=== PATIENT | female | born 1955 | race Caucasian/White ===

== ENCOUNTER → 2017-12-01 10:12 | Outpatient (CLI) | payer OTHER, SELFPAY ==
--- NOTE | 2017-12-01 11:00 | XR_ITS ---
XR DEXA axial skeleton HISTORY: ITS.REASON: MENOPAUSAL , RT HIP PAIN ORDERING PHYSICIAN: Isabel Butterfield PATIENT AGE: 62 years COMPARISON: 11/01/2015 FINDINGS: The BMD measured at the Right femoral neck is 1.060 g/cm squared with a T score of 0.2. This is considered normal according to the World Health Organization criteria. Fracture risk is low. Treatment is advised. The L1 L4 density has a T score of 2.7. There is been overall decrease in bone density of lumbar spine and hips by approximately 4% compared to the previous study. There is increased density in the right lower ilium on the topogram views and could be related overlying artifact. Pelvic film may confirm and to exclude possibility of a blastic lesion in the ileum. IMPRESSION: 1. Normal bone density. Recommend follow-up exam November 2019 2. Increased density superior to the ileum which could be due to artifact or possible sclerotic lesion. Consider pelvic film for further evaluation.
== END ==
PROVIDERS: PCP Internal Medicine; Visit Provider Internal Medicine Hematology & Oncology
DX: Z78.0 Asymptomatic menopausal state (principal); M25.551 Pain in right hip; R05 Cough; C50.612 Malignant neoplasm of axillary tail of left female breast; N95.1 Menopausal and female climacteric states
CPT/HCPCS: 77080

== ENCOUNTER → 2017-12-10 08:53 | Outpatient (CLI) | payer OTHER, SELFPAY ==
--- NOTE | 2017-12-10 08:58 | NM_ITS ---
NM bone scan whole body Ordering Physician: Isabel Butterfield Patient Age: 62 years: Female HISTORY: ITS.REASON: LESION SEEN ON DEXA, BREAST CA,RT HIP PAIN Intense dense appearing foci superior right iliac bone on recent DEXA scan TECHNIQUE: 3 hours administration of 26.7 mCi Tc MDP images entire skeleton were performed. COMPARISON :DEXA scan of hips 12/01/2017 . Lumbar spine 5 view radiograph 05/15/2016 MRI lumbar spine & from 11/04/2016. Plain films AP pelvis from today. Also right knee from 2010 FINDINGS The studies performed to specifically exclude a significant lesions of the pelvis. No pelvic lesions evident. No evidence of metastatic disease. Slight increased activity at right L5/S1 facet, compatible with mild hypertrophic degenerative changes seen here on plain film. Also scant activity upper lumbar spine noted and compatible with minor degenerative disc changes L1/2 as well as other minor degenerative changes in marginal osteophytes upper lumbar spine. The Patient bilateral knee replacements. At the right TKA there is moderate increased activity at the proximal tibia shaft just inferior to of tibial peg. I would suggest plain films of the right knee to further evaluate.. Left TKA unremarkable here. This could reflect either recent surgery or slight motion occurring at the inferior aspect of the tibial peg. Note moderate activity at feet at the level most likely level of midfoot and tarsals bilaterally. Suggesting degenerative changes here. There is also activity at the wrist bilaterally likely reflecting arthritic changes at wrists . The ribs and T-spine appears satisfactory. Scant activity at AC joint and sternoclavicular joint noted and reflecting minor degenerative feature. Moderate activity at the throughout region nose and ethmoid sinuses which could reflect ethmoid sinusitis. IMPRESSION: 1. No evidence of metastatic disease . Specifically no lesions are evident at the right hemipelvis is question on DEXA scan. (. I believe the questionable findings on recent DEXA were merely due to artifact possibly radiopaque material at cecum) 2. Minor degenerative arthritic changes are noted as in text . 3. Bilateral TK A. At the right knee there is slight increased activity at the proximal tibia just inferior to the tibial prosthesis peg. Requires correlation. Suggest plain films of right knee and possibly right tibia and fibula to further evaluate. & If pain here orthopedic follow-up would be warranted
--- NOTE | 2017-12-10 08:59 | XR_ITS ---
XR pelvis 1-2V Ordering Physician: Isabel Butterfield Patient Age: 62 years: Female HISTORY: ITS.REASON: LESION SEEN ON DEXA, BREAST CA, RT HIP PAIN TECHNIQUE: AP pelvis radiograph pelvic pain. Blastic lesion pelvis DEXA scan COMPARISON :Total body bone scan from today MRI pelvis November 2016 FINDINGS Osseous pelvis appears intact. Within normal limits. Sacrum & SI joints unremarkable. No findings on plain film to correlate with the 2 intensely bright foci superior right iliac bone seen on on recent DEXA scan. These were superior to the right acetabulum.. Possibly this may been due to artifact or radiopaque material within the cecum. Patient also has a lumbar spine series from 2016 the osseous pelvis is unchanged radiographically since that exam. Is also MRI of the pelvis from November 2016 osseous pelvis to be intact lesions at pelvis. I now see there is a total Body Bone Scan performed today. It shows no significant findings at pelvis.. Only some subtle increased activity at the facet joints L5/S1 most evident to the right facet, which corresponds with evident facet hypertrophy bilaterally on plain film generous stool is seen at the cecum overlying right iliac bone IMPRESSION: Osseous pelvis intact.No lesions evident. (No findings right iliac bone to correspond with areas questioned on DEXA scan) Mild sclerosis about the pubis symphysis= multigravida pelvis Degenerative facet changes L-5/S1
== END ==
PROVIDERS: Family Provider Internal Medicine; PCP Internal Medicine; Visit Provider Internal Medicine Hematology & Oncology
DX: R94.8 Abnormal results of function studies of other organs and systems (principal); C50.612 Malignant neoplasm of axillary tail of left female breast; M25.552 Pain in left hip
CPT/HCPCS: 72170; 78306; A9503

== ENCOUNTER → 2019-03-03 08:44 | Outpatient (CLI) | payer OTHER, SELFPAY ==
--- NOTE | 2019-03-03 08:54 | XR_ITS ---
XR knee RT 3V HISTORY: Follow-up knee replacement ITS.REASON: ap, lateral sunrise Weightbearing ORDERING PHYSICIAN: Quita Akhtar MD PATIENT AGE: 64 years COMPARISON: 07/05/2018 FINDINGS: Status post total knee. The femoral component is anchored with long intramedullary stem. There is a prominent zone of lucency around the proximal aspect of the femoral stem which appears slightly greater than when compared to the previous exam raising the question of loosening of the prosthesis. Please correlate with clinical findings. There is a zone of lucency along the distal aspect of the stem medially as well. The tibial component has an unremarkable appearance. IMPRESSION: Status post total knee replacement as described above with good alignment with prominent zone of lucency along the femoral stem raising the question of loosening of the prosthesis
== END ==
PROVIDERS: PCP Internal Medicine; Visit Provider Orthopaedic Surgery
DX: M25.561 Pain in right knee (principal)
CPT/HCPCS: 73562

== ENCOUNTER → 2019-05-19 07:48 | Outpatient (CLI) | payer SELFPAY ==
--- NOTE | 2019-05-19 07:53 | CT_ITS ---
PROCEDURE: CT HEART W CALCIUM SCORE CLINICAL HISTORY: SCREENING COMPARISON: No exams were available for comparison TECHNIQUE: Axial images obtained with sagittal and coronal reformats. All CT scans at the facility use one or more dose reduction, viz: automated exposure control, ma/kV adjustment per patient size (including targeted exams where dose is matched to indication, i.e. head), or iterative reconstruction technique. FINDINGS: The coronary artery calcium score is 0 with no identifiable calcific atherosclerotic plaque and with a very low cardiovascular disease risk. Images are reviewed. No associated abnormalities are apparent IMPRESSION: Coronary artery calcium score of 0 Dictated by: Andi Almanza MD 05/19/2019 14:23 Signed by: <Electronically signed by Andi Almanza MD in [place]> 05/19/2019 14:23
== END ==
PROVIDERS: PCP Internal Medicine; Visit Provider Internal Medicine Cardiovascular Disease
DX: Z13.6 Encounter for screening for cardiovascular disorders (principal)
CPT/HCPCS: 75571

== ENCOUNTER → 2019-12-06 09:34 | Outpatient (CLI) | payer OTHER, SELFPAY ==
--- NOTE | 2019-12-06 09:36 | XR_ITS ---
PROCEDURE: XR DEXA AXIAL SKELETON CLINICAL HISTORY: POST MENOPAUSAL COMPARISON: No exams were available for comparison FINDINGS: Left femoral neck density is 0.808 g cm sq with a T-score of -0 4. Right femoral neck density is 0.858 grams/centimeters sq with a T-score of 0.1. L1-L4 density is 1.241 grams/centimeters sq with T-score 1.8 IMPRESSION: Normal bone density Dictated by: Andi Almanza MD 12/06/2019 18:13 Electronically signed by Andi Almanza MD in [place] 12/06/2019 18:13
== END ==
PROVIDERS: PCP Internal Medicine; Visit Provider Nurse Practitioner Family
DX: M25.551 Pain in right hip (principal); C50.612 Malignant neoplasm of axillary tail of left female breast; N95.1 Menopausal and female climacteric states; R05 Cough
CPT/HCPCS: 77080

== ENCOUNTER → 2020-06-27 08:15 | Outpatient (CLI) | payer OTHER, SELFPAY ==
--- NOTE | 2020-06-27 08:22 | US_ITS ---
PROCEDURE: US ABDOMEN LIMITED CLINICAL INDICATION: LUQ NODULE ABD WALL COMPARISON: No exams were available for comparison FINDINGS: Ultrasound performed of a palpable nodule in the left mid abdominal region. This shows some heterogeneous slight increase in signal intensity with internal fascial lines consistent with a lipoma. CT may confirm. This area is measured at 1.5 x 1.3 cm. IMPRESSION: Palpable abnormality may represent a lipoma. CT may confirm if clinically warranted Dictated by: Andi Almanza MD 06/27/2020 17:32 Andi Almanza MD in [place] 06/27/2020 17:32
== END ==
PROVIDERS: PCP Internal Medicine; Visit Provider Internal Medicine
DX: R10.12 Left upper quadrant pain (principal); R22.9 Localized swelling, mass and lump, unspecified
CPT/HCPCS: 76705

== ENCOUNTER 2021-04-18 11:22 | Emergency (ER) | payer MEDICARE, OTHER, SELFPAY ==
[2021-04-18 11:25] VITALS: BP 141/91; PULSE 75; RESP 20; TEMP 36.8; O2SAT 99; BMI 34.3
[2021-04-18 11:51] VITALS: BP 141/91; PULSE 75; RESP 20; TEMP 36.8; O2SAT 99
--- NOTE | 2021-04-18 11:54 | HMH.EDUTC ---
[facility] [place] Disposition Clinical Impression: Viral syndrome, Exposure to COVID-19 virus Disposition: Home, Self-Care Condition on Discharge: Good Instructions: DI for Viral Syndrome, Preventing the Spread of Coronavirus Discharge Instructions Additional Instructions: Drink plenty of fluids. Take tylenol or ibuprofen for pain or fever. Follow up with your regular doctor. GO TO THE ER FOR ANY WORSENING SYMPTOMS Throw your tooth brush away and get a new one. The cough medication (promethazine dm) will make you drowsy, so don't drive or operate heavy machinery after taking it. Don't take it and the Nyquil that you have been taking. This would make you too drowsy. Prescriptions: Promethazine/Dextromethorphan [Promethazine-Dm Syrup] 5 ml PO Q6HP PRN #240 syrup PRN Reason: Cough Transmission Status: Received by [facility] Benzonatate [Tessalon Perle 100mg Cap] 100 mg PO TIDP PRN #30 cap PRN Reason: Cough Transmission Status: Received by [facility] Azithromycin [Z-Roger 250mg Tab*] 250 mg PO UD DOSE PK #6 tab Transmission Status: Pending to [facility] Referrals: Roger Renae [Primary Care Provider] - Time of Disposition: 11:56 Medical Decision Making - Medical Records Medical records reviewed: No: I reviewed the patient's medical records. - Josué Inquiry Pt receiving controlled substance: No Vital Signs: 04/18/21 11:25 04/18/21 11:51 Temperature 98.3 F 98.3 F Temperature Source Oral Pulse Rate 75 Pulse Rate [Right Brachial] 75 Respiratory Rate 20 20 Blood Pressure 141/91 H Blood Pressure [Right Arm] 141/91 H Blood Pressure Mean [Right Arm] 107 Blood Pressure Source [Right Arm] Automatic Cuff Blood Pressure Position [Right Arm] Sitting 02 Sat by Pulse Oximetry 99 Oxygen Delivery Method Room Air - Lab Data Lab results reviewed: Yes: I reviewed the patient's lab results. [facility] HPI - General Stated complaint: covid test Time Seen by Provider: 04/18/21 11:25 Mode of Arrival: Ambulatory Source of Information: Patient, Relative Limitations: No Limitations Description of Symptoms (Recalled from Triage Doc. by RN): PATIENT C/O SCRATCHY THROAT AND COUGH X 3 DAYS. HER GRANDDAUGHTER WAS EXPOSED TO COVID AT CAMP RECENTLY BUT IS HAVING NO SYMPTOMS HEENT Symptoms (Recalled from RN notes): Yes Resp Symptoms (Recalled from RN notes): No Skin Symptoms (Recalled from RN notes): No MS Symptoms (Recalled from RN notes): No Functional Status (Recalled from RN notes): WNL - History of Present Illness Provider Complaint: She has been exposed to covid-19 several days ago. She has been having fairly mild body aches and chilling since yesterday. She denies shortness of breath. - Related Data Home Medications Medication Instructions Recorded Confirmed Bisoprolol/Hydrochlorothiazide 1 each PO DAILY 04/18/21 04/18/21 [Bisoprolol-Hctz 5-6.25 mg Tab] Furosemide [Lasix 20mg tab] 20 mg PO DAILY 04/18/21 04/18/21 Omeprazole [Omeprazole 20mg 20 mg PO DAILY 04/18/21 04/18/21 Capsule] Previous Rx's Medication Instructions Recorded Azithromycin [Z-Roger 250mg Tab*] 250 mg PO UD DOSE PK #6 tab 04/18/21 Benzonatate [Tessalon Perle 100mg 100 mg PO TIDP PRN #30 cap 04/18/21 Cap] Promethazine/Dextromethorphan 5 ml PO Q6HP PRN #240 syrup 04/18/21 [Promethazine-Dm Syrup] Allergies Allergy/AdvReac Type Severity Reaction Status Date / Time No Known Allergies Allergy Verified 11/24/19 09:53 - Worker's Comp Is this a Worker's Comp case?: No [facility] History - Hepatitis A Screen Drug use history?: No High risk sexual behaviors?: No History of sexually transmitted infection?: No Currently employed?: No Childcare worker?: No Do you have indoor plumbing?: Yes Do you have electricity?: Yes Attestation statement:: This patient has been screened for Hepatitis A risk factors. I have reviewed the patient's past medical history: Yes Medical History: Chidi
== END 2021-04-18 12:01 | disposition home or self-care (01) ==
PROVIDERS: Emergency Provider Nurse Practitioner Family; PCP Internal Medicine
DX: U07.1 COVID-19 (principal); I10 Essential (primary) hypertension; Z79.899 Other long term (current) drug therapy
CPT/HCPCS: G0463; 99202; U0003

== ENCOUNTER → 2021-09-15 16:19 | Outpatient (CLI) | payer MEDICARE, OTHER, SELFPAY ==
[2021-09-15 16:26] LABS: Basophils # 0.1 K/mm3 (0-0.2); Basophils % 0.9 % (0.1-2.0); Eosinophils # 0.1 K/mm3 (0.0-0.4); Eosinophils % 1.7 % (0.1-12.0); Hematocrit 40.7 % (37.0-47.0); Hemoglobin 13.3 g/dL (12.2-16.2); Lymphocytes # 2.3 K/mm3 (0.7-4.5); Lymphocytes % 33.8 % (10-50); Mean Corpuscular HGB Conc 32.7 g/dL (31.8-35.4); Mean Corpuscular Hemoglobin 28.1 pg (27.0-31.2); Mean Corpuscular Volume 85.9 fl (81-99); Mean Platelet Volume 8.3 fl (7.4-10.4); Monocytes # 0.4 K/mm3 (0.1-1.0); Monocytes % 6.6 % (1.7-9.3); Neutrophils # 3.8 K/mm3 (1.8-7.8); Platelet Count 409 K/mm3 (142-424); Red Blood Count 4.74 M/mm3 (4.20-5.40); Red Cell Distribution Width 12.6 % (11.5-17.5); White Blood Count 6.7 K/mm3 (4.8-10.8)
[2021-09-15 17:23] LABS: Alanine Aminotransferase 44 U/L (12-78); Albumin Level 4.2 g/dl (3.5-5.0); Albumin/Globulin Ratio 1.6 (1.1-1.8); Alkaline Phosphatase 91 U/L (38-126); Anion Gap 13.5 mEq/L (5-15); Aspartate Amino Transferase 37 U/L (14-36); Bilirubin,Total 0.5 mg/dl (0.2-1.3); Blood Urea Nitrogen 16 mg/dl (7-17); Calcium 9.5 mg/dl (8.4-10.2); Carbon Dioxide 25 mmol/L (22.0-30.0); Chloride 101 mmol/L (98-107); Chol/HDL Ratio 4.5 (1-3.5); Cholesterol 254 mg/dl (140-200); Estimated Glomerular Filt Rate 84 ml/min (>60); GFR (African American) 102 ML/MIN (>60); Globulin 2.6 g/dL (1.3-3.2); Glucose 96 mg/dl (74-100); HDL Cholesterol 56 mg/dl (40-60); Potassium 4.5 mmoL/L (3.5-5.1); Sodium 135 mmol/L (136-145); Total Protein,Serum 6.8 g/dl (6.3-8.2); Triglycerides 188 mg/dl (30-150); VLDL Cholesterol 38 mg/dL (0-40)
[2021-09-15 17:35] LABS: Direct LDL Cholesterol 156.74 mg/dL (100-129)
[2021-09-15 17:54] LABS: Thyroid Stimulating Hormone 1.42 uIU/mL (0.465-4.68)
== END ==
PROVIDERS: Visit Provider Internal Medicine
DX: I10 Essential (primary) hypertension (principal); E78.5 Hyperlipidemia, unspecified; I87.2 Venous insufficiency (chronic) (peripheral); R60.9 Edema, unspecified; E03.9 Hypothyroidism, unspecified; M15.0 Primary generalized (osteo)arthritis
CPT/HCPCS: 80053; 80061; 84443; 85025

== ENCOUNTER → 2021-11-05 08:19 | Outpatient (CLI) | payer MEDICARE, OTHER, SELFPAY | PROVIDERS: PCP Internal Medicine; Visit Provider Internal Medicine | DX: Z01.812 Encounter for preprocedural laboratory examination (principal); Z11.52 Encounter for screening for COVID-19; Z12.11 Encounter for screening for malignant neoplasm of colon | CPT/HCPCS: C9803; U0003; U0005 ==

== ENCOUNTER → 2021-12-10 12:13 | Outpatient (CLI) | payer MEDICARE, OTHER, SELFPAY | PROVIDERS: Visit Provider Surgery | DX: Z01.812 Encounter for preprocedural laboratory examination (principal); Z11.52 Encounter for screening for COVID-19; Z12.11 Encounter for screening for malignant neoplasm of colon | CPT/HCPCS: C9803; U0003; U0005 ==

== ENCOUNTER 2021-12-12 09:17 | Day surgery (SDC) | payer MEDICARE, OTHER, SELFPAY ==
[2021-11-04 13:32] VITALS: BMI 32.5
[2021-12-09 09:44] VITALS: BMI 34.3
--- NOTE | 2021-12-12 09:35 | P.PN_ITS ---
[facility] Anesthesia Checklist - Patient Identification Patient Identification: Arm Band - Structural Data Admitted From: Home Planned Operative Procedure/s: Colonoscopy Consent for Planned Operative Procedure(s) Verified: Yes - NPO Status Verified Time NPO: 06:30 (Prep) - Additional verifications Anesthesia Reactions: No - Airway Assessment C-Spine Mobility Assessed: Yes TMJ Mobility Assessed: Yes Dentition: Good Dentition - Neurological Assessment Level of Consciousness: Awake Hx Seizures: No Numbness or tingling in extremities: No - Anesthesia Plan Anesthesia Risk discussed: Yes Anesthesia Plan: Verified ASA Class: II Anesthesia Type: MAC [facility] History I have reviewed the patient's past medical history: Yes Medical History: Reports:: Cancer (breast), Gastroesophageal Reflux Disease(GERD), Hypertension Denies:: Diabetes Mellitus Type 1, Diabetes Mellitus Type 2, Internal Pacemaker, MRSA, Seizures *Have you ever received a pneumonia vaccine?: No *Have you received a flu vaccine this season?: Yes Anesthesia experience/problems:: Difficult intubation Laterality Cases: Right: Carpal Tunnel Release, Bilateral: Arthroscopy Knee, Lumpectomy Other Surgeries: Yes: Cholecystectomy, Colonoscopy, Hysterectomy-Partial. No: Pacemaker Amputation: No Fractures: No - *Social History Last grade of school completed: High school graduate Smoking Status: Never smoker Alcohol Intake: never Substance Use Type: denies use *Occupational Status:: retired Housing: house Household Members: spouse *Travel in the last 8 weeks: None Family Hx:: No significant family history
[2021-12-12 10:01] VITALS: BP 136/79; PULSE 58; RESP 18; TEMP 36.4; O2SAT 97
[2021-12-12 10:27] VITALS: O2SAT 97
[2021-12-12 10:51] VITALS: BP 119/73; PULSE 68; RESP 18; TEMP 36.1; O2SAT 96
--- NOTE | 2021-12-12 10:56 | P.PCN_ITS ---
- Procedure: Date: 12/12/21 Patient Date of :: 1955 Procedure Performed:: Total colonoscopy Indications:: Patient is a 66-year-old female. She has had previous colonoscopy on 4 occasions. Last colonoscopy was 10/31/2019. She had tubular adenoma x3 and a s essile serrated adenoma. She also was noted to have an ascending colon submucosal lipoma. She does have some of her family history with 3 of her uncles having colon cancer. Due to history of polyps she was scheduled for colonoscopy. Performing Provider:: Sonu Chaudhry MD Referring Provider:: Roger Renae MD Sedation:: MAC sedation Procedure:: Patient was taken to endoscopy procedure room. She was positioned in lateral decubitus position. Adequate intravenous sedation was achieved with anesthesia titration of propofol. Variable stiffness Olympus colonoscope was inserted via the anus. Is advanced to the cecum. Colonic preparation was excellent. Ileocecal valve and appendiceal orifice were clearly identified. Colonoscope was slowly withdrawn through the colon with careful surveillance. She had some sigmoid diverticulosis. There was noted to be a submucosal lipoma in the ascending colon as previously noted. Within the rectum retroflexion was performed which revealed minimal prolapsing but nonpathologic nonbleeding internal hemorrhoids. Colonoscope was withdrawn. Findings:: Sigmoid diverticulosis Recommendations:: Repeat colonoscopy 4 to 5 years Complications:: None Estimated blood obtained (mL): 0
[2021-12-12 11:01] VITALS: BP 116/77; PULSE 64; RESP 18; O2SAT 96
[2021-12-12 11:11] VITALS: BP 123/75; PULSE 60; RESP 18; O2SAT 95
[2021-12-12 11:21] VITALS: BP 121/73; PULSE 58; RESP 18; O2SAT 98
== END 2021-12-12 11:21 | disposition home or self-care (01) ==
LOC: OUTP 09:18
PROVIDERS: PCP Internal Medicine; Visit Provider Surgery
PROC: 0DJD8ZZ Inspection of Lower Intestinal Tract, Via Natural or Artificial Opening Endoscopic (ICD-10-PCS; principal; 2021-12-12 10:30)
DX: Z12.11 Encounter for screening for malignant neoplasm of colon (principal); D17.79 Benign lipomatous neoplasm of other sites; Z86.010 Personal history of colon polyps; K57.30 Diverticulosis of large intestine without perforation or abscess without bleeding; Z80.0 Family history of malignant neoplasm of digestive organs; K21.9 Gastro-esophageal reflux disease without esophagitis; I10 Essential (primary) hypertension; Z85.3 Personal history of malignant neoplasm of breast
CPT/HCPCS: G0105

== ENCOUNTER → 2022-02-03 14:49 | Outpatient (CLI) | payer MEDICARE, OTHER, SELFPAY | PROVIDERS: PCP Internal Medicine; Visit Provider Internal Medicine | DX: M79.604 Pain in right leg (principal); M79.89 Other specified soft tissue disorders | CPT/HCPCS: 93971 ==

== ENCOUNTER → 2022-05-04 16:58 | Outpatient (CLI) | payer MEDICARE, OTHER, SELFPAY ==
[2022-05-04 18:00] LABS: Basophils # 0.1 K/mm3 (0-0.2); Basophils % 0.7 % (0.1-2.0); Eosinophils # 0.1 K/mm3 (0.0-0.4); Hematocrit 43.1 % (37.0-47.0); Hemoglobin 13.7 g/dL (12.2-16.2); Lymphocytes # 2.2 K/mm3 (0.7-4.5); Mean Corpuscular HGB Conc 31.9 g/dL (31.8-35.4); Mean Corpuscular Volume 87.9 fl (81-99); Mean Platelet Volume 9.2 fl (7.4-10.4); Monocytes # 0.5 K/mm3 (0.1-1.0); Monocytes % 6.6 % (1.7-9.3); Neutrophils # 3.9 K/mm3 (1.8-7.8); Neutrophils % 57.8 % (37.0-80.0); Platelet Count 486 K/mm3 (142-424); Red Cell Distribution Width 12.8 % (11.5-17.5); White Blood Count 6.8 K/mm3 (4.8-10.8)
[2022-05-04 19:00] LABS: Alanine Aminotransferase 44 U/L (12-78); Albumin Level 4.1 g/dl (3.5-5.0); Albumin/Globulin Ratio 1.5 (1.1-1.8); Alkaline Phosphatase 100 U/L (38-126); Anion Gap 13.5 mEq/L (5-15); Aspartate Amino Transferase 39 U/L (14-36); Bilirubin,Total 0.2 mg/dl (0.2-1.3); Blood Urea Nitrogen 12 mg/dl (7-17); Calcium 9.3 mg/dl (8.4-10.2); Carbon Dioxide 25 mmol/L (22.0-30.0); Chloride 103 mmol/L (98-107); Chol/HDL Ratio 4.7 (1-3.5); Cholesterol 255 mg/dl (140-200); Estimated Glomerular Filt Rate 84 ml/min (>60); GFR (African American) 101 ML/MIN (>60); Globulin 2.7 g/dL (1.3-3.2); Glucose 103 mg/dl (74-100); HDL Cholesterol 54 mg/dl (40-60); Potassium 4.5 mmoL/L (3.5-5.1); Sodium 137 mmol/L (136-145); Total Protein,Serum 6.8 g/dl (6.3-8.2); Triglycerides 165 mg/dl (30-150); VLDL Cholesterol 33 mg/dL (0-40)
[2022-05-04 19:31] LABS: Thyroid Stimulating Hormone 1.62 uIU/mL (0.465-4.68)
== END ==
PROVIDERS: PCP Internal Medicine; Visit Provider Internal Medicine
DX: I10 Essential (primary) hypertension (principal); E78.5 Hyperlipidemia, unspecified; I87.2 Venous insufficiency (chronic) (peripheral); M15.0 Primary generalized (osteo)arthritis; R60.9 Edema, unspecified; Z96.653 Presence of artificial knee joint, bilateral
CPT/HCPCS: 80053; 80061; 84443; 85025

== ENCOUNTER → 2022-05-05 06:12 | Outpatient (CLI) | payer MEDICARE, OTHER, SELFPAY | PROVIDERS: PCP Internal Medicine; Visit Provider Internal Medicine | DX: I10 Essential (primary) hypertension (principal) ==

== ENCOUNTER → 2022-06-11 09:04 | Outpatient (CLI) | payer MEDICARE, OTHER, SELFPAY ==
--- NOTE | 2022-06-11 09:10 | XR_ITS ---
FINAL REPORT CLINICAL HISTORY: LT wrist pain -- arm and hand numbness -- R/O carpal tunnel syndrome FINDINGS: 3 views of the left wrist were obtained. There is no acute fracture or dislocation. There are mild and moderate degenerative changes greatest at the 1st CMC joint. There is a 3 mm presumed loose body adjacent to the 1st CMC joint. IMPRESSION: Mild and moderate degenerative changes. Reviewed, Interpreted and Dictated by Sonu Ryan III, MD Transcribed by Eben Rivera Authenticated and [facility]
== END ==
PROVIDERS: PCP Internal Medicine; Visit Provider Orthopaedic Surgery
DX: M25.532 Pain in left wrist (principal)
CPT/HCPCS: 73110

== ENCOUNTER → 2022-08-07 12:29 | Outpatient (CLI) | payer MEDICARE, OTHER, SELFPAY ==
[2022-08-07 15:04] LABS: Platelet Count 386 K/mm3 (142-424)
== END ==
PROVIDERS: PCP Internal Medicine; Visit Provider Internal Medicine
DX: R79.89 Other specified abnormal findings of blood chemistry (principal)
CPT/HCPCS: 85049

== ENCOUNTER → 2023-01-21 13:45 | Outpatient (CLI) | payer MEDICARE, OTHER, SELFPAY ==
--- NOTE | 2023-01-21 13:52 | XR_ITS ---
FINAL REPORT CLINICAL HISTORY: left shoulder pain FINDINGS: LEFT SHOULDER 3 views of the left shoulder were obtained. There is no acute fracture or dislocation. There are mild degenerative changes of the acromioclavicular joint and moderate degenerative changes of the glenohumeral joint. There are subchondral cysts in the glenoid. There is no soft tissue abnormality. There are postoperative changes in the axilla. IMPRESSION: Mild and moderate degenerative changes as above with no acute bony abnormality. Reviewed, Interpreted and Dictated by Sonu Ryan III, MD Transcribed by Magdalena Sheikh Authenticated and [facility]
== END ==
PROVIDERS: PCP Internal Medicine; Visit Provider Orthopaedic Surgery
DX: M25.512 Pain in left shoulder (principal)
CPT/HCPCS: 73030

== ENCOUNTER → 2023-06-03 12:00 | Outpatient (CLI) | payer MEDICARE, OTHER, SELFPAY | PROVIDERS: PCP Internal Medicine; Visit Provider Student in an Organized Health Care Education/Training Program | DX: R09.81 Nasal congestion (principal); U07.1 COVID-19 | CPT/HCPCS: 87635 ==

== ENCOUNTER → 2023-07-14 10:07 | Outpatient (CLI) | payer MEDICARE, OTHER, SELFPAY ==
--- NOTE | 2023-07-14 10:15 | MR_ITS ---
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 A set of three-plane, low-resolution, large [id number] localizers were initially acquired. Then axial, coronal, and sagittal TrueFISP, and axial HASTE images were obtained. These were followed by gated TrueFISP breathold cinematic sequences obtained in the short axis with 8 mm slices and 2 mm gaps, 2-chamber (vertical long axis), 3-chamber, 4-chamber (horizontal long axis). A bolus of contrast was injected intravenously with first-pass sequences obtained in the short axis and four-chamber planes. After approximately 10 minutes, a TI mannequin refinisher sequence was performed to determine the optimal TI time. Using the optimized TI time, delayed contrast enhancement segmented inversion???recovery TurboFLASH sequences were obtained in the short axis, 2-chamber, 3-chamber, and 4-chamber projections. 2D-velocity phase mapping was performed. Functional parameters were calculated by offline analysis on an independent workstation ([employer], [employer]). Contrast: ProHance??? (Gadoteridol) FINDINGS See below for the full quantitative analysis report. MORPHOLOGY AND FUNCTION Left ventricle: The left ventricle is normal in size. The indexed left ventricular end-diastolic volume (LVEDVi) is 82.9 ml/m2 (reference range 57-105 ml/m2 in males, 56-96 ml/m2 in females). Normal left ventricular systolic function is present. There is normal wall thickness. There are no regional wall motion abnormalities noted. LVEF is calculated at 58.0 % (reference range 57-77%). Right ventricle: The right ventricle is normal in size. The indexed right ventricular end-diastolic volume (RVEDVi) is 71.7 ml/m2 (reference range 61-121 ml/m2 in males, 48-112 ml/m2 in females). Normal right ventricular systolic function is present. RVEF is calculated at 60.3 % (reference range 52-72% in males, 51-71% in females). Atria: The left atrium is normal in size. The maximum indexed left atrial volume is 44.0 ml/m2 (reference range 26-52 ml/m2 in males, 27-53 ml/m2 in females). The right atrium is normal in size. The maximum indexed right atrial volume is 34.0 ml/m2 (reference range 18-90 ml/m2). Aorta: The diameter of the aortic annulus is low-normal, measuring 17.7 mm (coronal view reference range 21-30 mm in males, 19-27 mm in females). The diameter of the aortic sinus is normal, measuring 29.7 mm (coronal view reference range 25-42 mm in males, 24-36 mm in females). The diameter of the sinotubular junction is normal, measuring 27.9 mm (coronal view reference range 18-32 mm in males, 18-28 mm in females). The diameter of the ascending and descending thoracic aorta are normal. Main pulmonary artery: The main pulmonary artery diameter is normal. Pericardium: The pericardial thickness is normal. The pericardial thickness measures 1.9 cm. There is no pericardial effusion. VALVES The valvular morphologies in the visualized sequences appear normal. There is no significant valvular stenosis or regurgitation of the mitral, aortic, tricuspid, or pulmonic valve. Systolic anterior motion of the mitral valve is not visualized. Ratio of pulmonary to systemic flow, Qp:Qs ratio cannot be determined due to absence of pulmonary flow evaluation. TISSUE CHARACTERIZATION Resting Perfusion: Normal myocardial blood flow at rest. No evidence of resting hypoperfusion. Myocardial Fibrosis and/or edema: Normal gadolinium kinetics are present. No evidence of late gadolinium enhancement is noted, consistent with absence of myocardial scarring, infarction, or necrosis. OTHER No other significant findings are noted. However
== END ==
PROVIDERS: PCP Internal Medicine
DX: J02.9 Acute pharyngitis, unspecified (principal)

== ENCOUNTER 2023-11-29 13:27 | Outpatient (CLI) | payer MEDICARE, OTHER, SELFPAY ==
[2023-11-29 14:41] LABS: Basophils # 0.1 K/mm3 (0-0.2); Basophils % 0.7 % (0.1-2.0); Eosinophils # 0.1 K/mm3 (0.0-0.4); Eosinophils % 1.4 % (0.1-12.0); Hematocrit 44.5 % (37.0-47.0); Hemoglobin 14.6 g/dL (12.2-16.2); Lymphocytes # 2.5 K/mm3 (0.7-4.5); Lymphocytes % 36.9 % (10-50); Mean Corpuscular HGB Conc 32.9 g/dL (31.8-35.4); Mean Corpuscular Hemoglobin 29.9 pg (27.0-31.2); Mean Corpuscular Volume 90.7 fl (81-99); Mean Platelet Volume 8.7 fl (7.4-10.4); Monocytes # 0.5 K/mm3 (0.1-1.0); Monocytes % 6.8 % (1.7-9.3); Neutrophils # 3.6 K/mm3 (1.8-7.8); Neutrophils % 54.1 % (37.0-80.0); Platelet Count 379 K/mm3 (142-424); Red Cell Distribution Width 12.9 % (11.5-17.5); White Blood Count 6.7 K/mm3 (4.8-10.8)
[2023-11-29 15:32] LABS: Alanine Aminotransferase 55 U/L (12-78); Albumin Level 4.3 g/dl (3.5-5.0); Albumin/Globulin Ratio 1.7 (1.1-1.8); Alkaline Phosphatase 86 U/L (38-126); Anion Gap 10.2 mEq/L (5-15); Aspartate Amino Transferase 45 U/L (14-36); Bilirubin,Total 0.5 mg/dl (0.2-1.3); Blood Urea Nitrogen 14 mg/dl (7-17); Calcium 9.7 mg/dl (8.4-10.2); Carbon Dioxide 31 mmol/L (22.0-30.0); Chloride 101 mmol/L (98-107); Chol/HDL Ratio 5.1 (1-3.5); Cholesterol 289 mg/dl (140-200); Estimated Glomerular Filt Rate 83 ml/min (>60); GFR (African American) 101 ML/MIN (>60); Globulin 2.6 g/dL (1.3-3.2); Glucose 96 mg/dl (74-100); HDL Cholesterol 57 mg/dl (40-60); Magnesium 2.3 mg/dl (1.6-2.3); Potassium 4.2 mmoL/L (3.5-5.1); Sodium 138 mmol/L (136-145); Total Protein,Serum 6.9 g/dl (6.3-8.2); Triglycerides 216 mg/dl (30-150); VLDL Cholesterol 43 mg/dL (0-40)
[2023-11-29 15:43] LABS: Direct LDL Cholesterol 158.85 mg/dL (100-129)
== END 2023-11-29 23:59 ==
LOC: LAB.DROPOF 13:28
PROVIDERS: PCP Internal Medicine; Visit Provider Internal Medicine
DX: I10 Essential (primary) hypertension (principal); I87.2 Venous insufficiency (chronic) (peripheral); E78.5 Hyperlipidemia, unspecified; J31.0 Chronic rhinitis; M15.0 Primary generalized (osteo)arthritis; Z96.653 Presence of artificial knee joint, bilateral
CPT/HCPCS: 80053; 80061; 83735; 85025

== ENCOUNTER 2023-12-10 07:54 | Outpatient (CLI) | payer MEDICARE, OTHER, SELFPAY ==
--- NOTE | 2023-12-10 07:58 | US_ITS ---
FINAL REPORT CLINICAL HISTORY: RUQ PAIN,FATTY LIVER COMPARISON: None FINDINGS: Sonographic images of the right upper quadrant were obtained. The pancreas is partially obscured. There is increased echogenicity in the liver consistent with fatty infiltration. The gallbladder has been surgically resected. There is no evidence of biliary ductal dilatation.The common duct measures 7 mm. There is mild cortical thinning present in the right kidney. IMPRESSION: Prior cholecystectomy without evidence of significant biliary ductal dilatation. Fatty infiltration of the liver. Mild cortical thinning present in the right kidney that may be secondary to chronic renal disease. Reviewed, Interpreted and Dictated by Sonu Ryan III, MD Transcribed by Amrita Barrera Authenticated and [facility]
== END 2023-12-10 23:59 ==
LOC: RAD 07:54
PROVIDERS: PCP Internal Medicine; Visit Provider Internal Medicine
DX: K76.0 Fatty (change of) liver, not elsewhere classified (principal)
CPT/HCPCS: 76705

== ENCOUNTER 2024-01-05 08:26 | Emergency (ER) | payer MEDICARE, OTHER, SELFPAY ==
[2024-01-05 08:35] VITALS: BP 141/86; PULSE 63; RESP 19; TEMP 36.8; O2SAT 98; BMI 34.3
--- NOTE | 2024-01-05 08:47 | ED_ITS ---
Discharge Plan Disposition Patient Disposition: Home, Self-Care Condition: Good Prescriptions Prescriptions: New dicyclomine 10 mg capsule 10 mg PO TID PRN (Reason: abdominal pain/cramping) Qty: 9 0RF ondansetron 4 mg Tablet,Disintegrating 4 mg PO Q8H PRN (Reason: Nausea) Qty: 20 0RF No Action bisoprolol-hydrochlorothiazide 1 EACH tablet 1 each PO DAILY omeprazole 20 MG capsule,delayed release(DR/EC) 20 mg PO DAILY furosemide 20 MG tablet 20 mg PO DAILY omega-3 fatty acids-fish oil 1 EACH capsule 1 each PO DAILY xj-fhmwece-bhw-iron fm-FA-vitK 1 EACH tablet 1 each PO DAILY Referrals Follow up/Referrals: Roger Renae MD [Primary Care Provider] - See instructions Activity Restrictions/Add. Instructions Additional Instructions/Restrictions: Drink extra fluids with and between meals. If you have difficulty drinking, try very small amounts of water or suck on ice chips and make sure that you are drinking plenty of fluids to stay hydrated ? Avoid fruit juices, as these do not replace minerals and can actually increase diarrhea. ? Children and adults can use sports drinks to replenish electrolytes. and oral rehydration solutions like liquid IV and Pedialyte. ? Eat food in small amounts and let your stomach recover foods like bananas, rice applesauce and dry toast may easier on your stomach. ? Get lots of rest. You may feel tired or weak. ? No greasy or fried foods for the next 24-48 hours BRAT diet Bananas Rice Apples and [place] ? Make sure to drink plenty of liquids ? Return if needed ? Straight to ER if any life threatening symptoms ? Zofran as prescribed ? You was given an outpatient order for diarrhea panel, please collect specimen and bring back to outpatient lab then call back to the [facility] or follow up with family doctor for results ? Follow up with family doctor in the next 48-72 hours if no improvement or any worsening of symptoms Clinical Impressions Clinical Impression: Diarrhea Qualifiers: Diarrhea type: unspecified type Qualified Code(s): R19.7 - Diarrhea, unspecified Instructions Patient Instructions: Diarrhea, Dicyclomine Discharge ED Provider: Kimi Medina [facility] General Stated complaint: v/d 3 days Mode of Arrival: Ambulatory Source of Information: Patient Limitations: No Limitations Time Seen by Provider: 01/05/24 08:47 Description of Symptoms (Recalled from Triage Doc. by RN): PATIENT C/O DIARRHEA WITH SOME VOMITING X 3 DAYS HEENT Symptoms (Recalled from RN notes): No Resp Symptoms (Recalled from RN notes): No Skin Symptoms (Recalled from RN notes): No MS Symptoms (Recalled from RN notes): No Functional Status (Recalled from RN notes): WNL History of Present Illness Provider Complaint: Patient states that she started on zpack on Wednesday for sinus infection then on Wednesday she started with diarrhea and some cramping States that she did have some N/V on Wednesday and then she felt a little better but has continued to have diarrhea States it was better yesterday but started again last night Denies abdominal pain and denies fever denies blood states that she has been taking pepto and since taking it it has made diarrhea dark in color but this is normal for her for it to do that Related Data Home Medications Medication Instructions Recorded Confirmed bisoprolol 5 1 each PO DAILY Hypertension 04/18/21 01/05/24 mg-hydrochlorothiazide 6.25 mg tablet furosemide 20 mg tablet 20 mg PO DAILY Fluid 04/18/21 01/05/24 omeprazole 20 mg capsule,delayed 20 mg PO DAILY GERD 04/18/21 01/05/24 release hrdowcdi-lwjxzvg-tzzf-iron fum 18 1 each PO DAILY Supplement 11/04/21 01/05/24 mg-folic 600 mcg-vit K 80 mcg tablet omega-3 fatty acids-fish oil 340 1 each PO DAILY Supplement 11/04/21 01/05/24 mg-1,000 mg capsule Previous Rx's Medication Instructions Recorded dicyclomine 10 mg capsule 10 mg PO TID PRN abdominal 01/05/24 pain/cramping #9 caps ondansetron 4 mg disintegrating 4 mg PO Q8H PRN Nausea #20 tabs 01/05/24 tablet Allergies Allergy/AdvReac Type Severity Reaction Status Date / Time No Known Allergies Allergy Verified 12/31/23 11:12 Worker's Comp Is this a Worker's Comp case?: No [facility] Disclaimer: The information contained in this section may have been updated after the patient was seen, as this information can be updated by other users. Medical History Sinusitis Adhesive capsulitis of left shoulder Cubital tunnel syndrome on left Surgical History No significant past surgical history Family History Other No significant family history Social History Smoking Status: Never smoker second hand exposure: No alcohol intake: never substance use type: denies use current occupational status: retired Travel in the last 8 weeks: None household members: spouse housing: house current occupational exposures/hazards: No caffeine: Yes ROS Obtained: Yes All systems reviewed & no additional complaints except as documented and Yes Systems reviewed as appropriate & no additional complaints except as documented Constitutional Constitutional: Reports system reviewed and no additional complaints, except as documented, Reports as per HPI, Denies body ache, Denies chills, Denies fever(s) and Denies headache(s) ENT Ears, Nose, Mouth, and Throat: Reports system reviewed and no additional complaints, except as documented, Reports as per HPI and Denies headache(s) Cardiovascular Cardiovascular: Reports system reviewed and no additional complaints, except as documented and Reports as per HPI Respiratory Respiratory: Reports system reviewed and no additional complaints, except as documented and Reports as per HPI Gastrointestinal Gastrointestingal: Reports system reviewed and no additional complaints, except as documented, as per HPI, cramping, diarrhea, nausea and vomiting (on Wednesday); Denies abdominal pain, excessive flatus, hematochezia or melena Genitourinary Female Genitourinary: Reports system reviewed and no additional complaints, except as documented and Reports as per HPI Neurologic Neurologic: Denies headache(s) Physical Exam General General appearance: alert and in no apparent distress ENT ENT exam: Present mucous membranes moist Respiratory Respiratory exam: Present normal lung sounds bilaterally; Absent respiratory distress or wheezes Cardiovascular Cardiovascular exam: Present regular rate, normal rhythm and normal heart sounds Abdominal Exam Abdominal exam: Present soft and normal bowel sounds; Absent distention or tenderness Neurological Exam Neurological exam: Present alert, oriented X3 and normal gait Medical Decision Making Josué Inquiry Pt receiving controlled substance: No Josué was queried for this patient: No Vital Signs: 01/05/24 08:35 Temperature 98.3 F Temperature Source Oral Pulse Rate [Left Brachial] 63 Respiratory Rate 19 Blood Pressure [Left Arm] 141/86 H Blood Pressure Mean [Left Arm] 104 Blood Pressure Source [Left Arm] Automatic Cuff Blood Pressure Position [Left Arm] Sitting 02 Sat by Pulse Oximetry 98 Oxygen Delivery Method Room Air Medical Decision Narrative: Patient collected stool sample in [facility] and sample was sent to lab
[2024-01-05 09:01] VITALS: BP 141/86; PULSE 63; RESP 19; TEMP 36.8; O2SAT 98
[2024-01-05 09:42] LABS: Adenovirus F 40/41, stool Not Detected (NotDetected); Astrovirus Not Detected (NotDetected); Campylobacter Not Detected (NotDetected); Clostridium Difficile A/B, PCR Not Detected (NotDetected); Cryptosporidium Not Detected (NotDetected); Cyclospora Cayetanesis Not Detected (NotDetected); Entamoeba histolytica Not Detected (NotDetected); Enteroaggregative E coli Not Detected (NotDetected); Enteropathogenic E coli Not Detected (NotDetected); Enterotoxigenic E coli Not Detected (NotDetected); Giardia lamblia Not Detected (NotDetected); Norovirus Not Detected (NotDetected); Plesimonas Shigalloides, PCR Not Detected (NotDetected); Salmonella, PCR Not Detected (NotDetected); Sapovirus Not Detected (NotDetected); Shiga-like toxin E coli Not Detected (NotDetected); Shigella Enterovasive E coli Not Detected (NotDetected); Vibrio Cholerae Not Detected (NotDetected); Vibrio, PCR Not Detected (NotDetected); Yersinia Entercolitica, PCR Not Detected (NotDetected)
[2024-01-08 09:29] LABS: Rotavirus A Detected (NotDetected)
== END 2024-01-05 09:09 | disposition home or self-care (01) ==
PROVIDERS: Emergency Provider Nurse Practitioner; PCP Internal Medicine
DX: A08.0 Rotaviral enteritis (principal); R11.2 Nausea with vomiting, unspecified; R19.7 Diarrhea, unspecified
CPT/HCPCS: 87507; 99212; 99214; G0463

== ENCOUNTER 2025-01-02 09:30 | Outpatient (CLI) | payer MEDICARE, OTHER, SELFPAY ==
[2025-01-02 17:30] LABS: Basophils # 0.1 K/mm3 (0-0.2); Basophils % 0.9 % (0.1-2.0); Eosinophils # 0.2 K/mm3 (0.0-0.4); Eosinophils % 3.2 % (0.1-12.0); Hematocrit 42.3 % (37.0-47.0); Hemoglobin 13.8 g/dL (12.2-16.2); Lymphocytes # 2.1 K/mm3 (0.7-4.5); Lymphocytes % 31.3 % (10-50); Mean Corpuscular HGB Conc 32.6 g/dL (31.8-35.4); Mean Corpuscular Hemoglobin 27.9 pg (27.0-31.2); Mean Corpuscular Volume 85.5 fl (81-99); Mean Platelet Volume 9.9 fl (7.4-10.4); Monocytes # 0.5 K/mm3 (0.1-1.0); Monocytes % 7.5 % (1.7-9.3); Neutrophils # 3.8 K/mm3 (1.8-7.8); Neutrophils % 56.8 % (37.0-80.0); Platelet Count 329 K/mm3 (142-424); Red Blood Count 4.95 M/mm3 (4.20-5.40); Red Cell Distribution Width 12.3 % (11.5-17.5); White Blood Count 6.6 K/mm3 (4.8-10.8)
[2025-01-02 18:20] LABS: Alanine Aminotransferase 55 U/L (12-78); Albumin Level 4.3 g/dl (3.5-5.0); Albumin/Globulin Ratio 1.4 (1.1-1.8); Alkaline Phosphatase 69 U/L (38-126); Anion Gap 13.8 mEq/L (5-15); Aspartate Amino Transferase 47 U/L (14-36); Bilirubin,Total 0.6 mg/dl (0.2-1.3); Blood Urea Nitrogen 16 mg/dl (7-17); Calcium 9.9 mg/dl (8.4-10.2); Carbon Dioxide 28 mmol/L (22.0-30.0); Chloride 99 mmol/L (98-107); Chol/HDL Ratio 4.9 (1-3.5); Cholesterol 242 mg/dl (140-200); Estimated Glomerular Filt Rate 83 ml/min (>60); GFR (African American) 101 ML/MIN (>60); Globulin 3.1 g/dL (1.3-3.2); Glucose 87 mg/dl (74-100); HDL Cholesterol 49 mg/dl (40-60); Magnesium 2.3 mg/dl (1.6-2.3); Potassium 3.8 mmoL/L (3.5-5.1); Sodium 137 mmol/L (136-145); Total Protein,Serum 7.4 g/dl (6.3-8.2); Triglycerides 228 mg/dl (30-150); VLDL Cholesterol 46 mg/dL (0-40)
[2025-01-02 18:31] LABS: Direct LDL Cholesterol 144.82 mg/dL (100-129)
== END 2025-01-02 23:59 | disposition home or self-care (01) ==
LOC: LAB.DROPOF 01-03 13:24
PROVIDERS: PCP Internal Medicine; Visit Provider Internal Medicine
DX: I10 Essential (primary) hypertension (principal); I87.2 Venous insufficiency (chronic) (peripheral); E78.5 Hyperlipidemia, unspecified; Z79.899 Other long term (current) drug therapy
CPT/HCPCS: 80053; 80061; 83735; 85025

== ENCOUNTER 2025-07-03 09:00 | Outpatient (CLI) | payer MEDICARE, OTHER, SELFPAY ==
[2025-07-03 16:25] LABS: C. difficile PCR (HMH) Negative (Negative)
--- OUTSIDE RECORDS SUMMARY | 2025-07-04 10:11 | XMS_ITS | Encounter Summary ---
Author Organization [employer] ([place], [place], [place], [place]) Address [address] [place] [address] Care Team Providers Care Mechanical Test Technician Name Role Phone Nick Zepeda MD Primary Care Provider [phone] Mariana Crum DO Primary Care Provider Encounter Details Date Type Department Care Team (Late st Contact Info) Description 01/11/2019 Transcribed Document [facility] - [address] [facility] [address] [place] [address] Isabel Butterfield MD [address] [place] [address] Social History Tobacco Use Types Packs/Day Years Used Date Smoking Tobacco: Never Assessed Comments Unknown Sex and Gender Information Value Date Recorded Sex Assigned at Not on file Legal Sex Female 6:09 PM CDT Gender Identity Not on file Sexual Orientation Not on file documented as of this encounter Miscellaneous Notes * Cerner Conversion Note - Isabel Butterfield MD - 01/11/2019 11:54 AM EDT [facility] Follow Up Note 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 Screening mammography 09/17, asymmetry in left breast, axillary tail. US with 7 mm mass. 2. Core needle biopsy was positive for ER/NH positive, mammary carcinoma. 3. Lumpectomy 10/16/15 T1bN0, moderately differentiated carcinoma, margins negative, moderately differentiated, single SLN negative. HER2 negative by IHC. Low risk Oncotype DX. 4. Adjuvant endocrine therapy with anastrazole and breast radiation 11/19. Transitioned to tamoxifen due to arthralgias. 5. Normal baseline bone densitometry 11/21. CC: Doing well HPI: Ms. Salter returns for follow-up of breast cancer. She is doing well on Tamoxifen. Fully compliant. No complaints. No interval health events. No breast-related complaints. Past Medical History: [facility] MD Isabel Avila MD [address], [address], [place] [address] 1 Hypertension, osteoarthritis Endocrine History: Postmenopausal, status post hysterectomy on minimal patches for past 11 years, until diagnosis Past Surgical History: CHARLEE/BSO, cholecystectomy, knee replacements Allergies: No Known Drug Allergies Medication List: bisoprolol-hydrochlorothiazide 1 Tablet Daily multivitamin 1 Tablet Daily Fish Oil (omega-3 fatty acids-vitamin E) [omega-3 fatty acids-vitamin E (Fish Oil)] 1 Capsule Twice a Day Calcium 600 with Vitamin D3 (calcium carbonate-vitamin D3) [calcium carbonate-vitamin D3 (Calcium 600 with Vitamin D3)] 1 Tablet every 12 hours Zyrtec (cetirizine) [cetirizine (Zyrtec)] 1 Tablet Daily influenza virus vaccine quadval split 2015-(36 mos up)/pf 0.5 mL once tamoxifen 1 Tablet once a day omeprazole 1 Capsule Daily furosemide 1 Tablet Daily Fluarix Quadrivalent (Influenza Quadrivalent Vaccine) [Influenza Quadrivalent Vaccine (Fluarix Quadrivalent)] 0.5 mL once Effexor XR (venlafaxine) [venlafaxine (Effexor XR)] 1 Capsule Daily tamoxifen 1 Tablet once a day Social History: Denies current tobacco or alcohol abuse, illicit drug use. 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 Family History: Mother with pancreatic cancer at age 89, maternal uncles (3) of colon cancer, one cousin on her mother's side with colon cancer. Review of Systems: 10 systems reviewed and negative except as noted per history of present illness. Vital Signs: Vital Signs & Weight; Pulse - 59 (01/11/2019 10:42 AM); B/P - 144/89 (01/11/2019 10:42 AM); Weight (lb) (lb) - 212.41 (01/11/2019 10:42 AM); Percent Weight Change - 3 L (01/11/2019 10:42 AM) Physical Examination: Gen?NAD, alert and oriented x3. Obese, but otherwise well-appearing Eyes?PER, EOMI, no scleral icterus. ENT?Oropharynx clear without lesions or exudate. Neck?Supple without JVD or thyromegaly. Lymph?No cervical, supraclavicular, or axillary adenopathy. CV?RRR, no murmurs, rubs or gallops. Lungs?CTAB, no wheezes, rales, or rhonchi. Abd?soft, non-tender, non-distended, positive bowel sounds, no mass, no hepatosplenomegaly. Extremities?no cyanosis, clubbing, or edema. Skin?No rashes or jaundice. Heme?No petechiae or ecchymoses. Neuro? Normal speech and gait. Strength and sensation intact upper and lower extremities. Psych? Normal mood and affect. Breast?No masses, nodules or skin changes bilateral breasts. No axillary adenopathy bilaterally. Orders: tamoxifen (20 mg) 1 Tablet Oral once a day Assessment/Plan: 63 YO here for follow-up of early stage ER positive breast cancer on adjuvant tamoxifen. She is tolerating adjuvant therapy well. No evidence of disease recurrence. We will plan to continue this for at least 5 years. Bilateral mammography , next due 10/23. I will see her back in 6 months or sooner for new or worsening symptoms. CC: JESSICA BACH Jessica (Jack) documented in this encounter Plan of Treatment Upcoming Encounters Date Type Department Care Team (Late st Contact Info) Description 12/10/2025 9:00 AM EDT Office Visit [facility] ACCOUNT DEVELOPMENT SPECIALIST - [address] [place] [address] Mariana Crum DO [address] [place] [address] 12/10/2025 11:00 AM EDT Appointment [facility] [address] [facility] [address] [place] [address] documented as of this encounter Visit Diagnoses Not on filedocumented in this encounter Care Teams Mechanical Test Technician Relationship Specialty Start Date End Date Nick Zepeda MD [address] [place] [address] PCP - General Obstetrics and Gynecology 11/09/2212/04 Mariana Crum DO [address] [place] [address] PCP - General Obstetrics and Gynecology 12/05/24 documented as of this encounter
--- OUTSIDE RECORDS SUMMARY | 2025-07-04 10:11 | XMS_ITS | Encounter Summary ---
Author Organization [employer] ([place], [place], [place], [place]) Address [address] [place] [address] Care Team Providers Care Optical Laboratory Technician Name Role Phone Mariana Crum DO Primary Care Provider [phone] Reason for Referral * Mammography (Routine) - Closed Specialty Diagnoses / Procedures Referred By Contac t Referred To Contact Radiology Diagnoses Visit for screening mammogram Procedures MM digital mammo screen with amy bilateral Mariana Crum DO [address] [place] [address] Phone: tel: fax: [facility] [address] [place] [address] Phone: tel: fax: Referral ID Status Reason Start Date Expiration Date Visits Re quested Visits Authorized [id number] Closed 12/05/2024 12/05/2025 1 1 Encounter Details Date Type Department Care Team (Late st Contact Info) Description 12/05/2024 Outside Orders [facility] [address] [place] [address] Mariana Crum DO [address] [place] [address] Visit for screening mammogram (Primary Dx) Social History Tobacco Use Types Packs/Day Years Used Date Smoking Tobacco: Never Smokeless Tobacco: Never Alcohol Use Standard Drinks/Week Comments Never 0 (1 standard drink = 0.6 oz pur e alcohol) Family and Community Support Answer Jose R e Recorded Help with Day to Day Activities Not on file 10/22/2023 Feeling Lonely or Isolated Not on file 10/22 Educational Attainment Answer Date Semaj rded Speak language other than Faroese at home Not on file 10/22/2023 Want help with school or training Not on file 10/22/2023 Substance Use Answer Date Recorded Used prescription meds for non-medical reasons N ot on file 10/22/2023 Used illegal drugs past 12 months Not on file 10/22/2023 Comments No Sex and Gender Information Value Date Recorded Sex Assigned at Not on file Legal Sex Female 6:09 PM CDT Gender Identity Not on file Sexual Orientation Not on file documented as of this encounter Plan of Treatment Upcoming Encounters Date Type Department Care Team (Late st Contact Info) Description 12/10/2025 9:00 AM EDT Office Visit [facility] PODOPEDIATRICIAN - [address] [place] [address] Mariana Crum, DO [address] [place] [address] 12/10/2025 11:00 AM EDT Appointment [facility] [address] [place] [address] documented as of this encounter Results * MM digital mammo screen with amy bilateral (12/05/2024 11:22 AM EST) Anatomical Region Laterality Modality Breast Bilateral Mammography 12/06/2024 4:43 PM EST Impressions 12/06/2024 4:46 PM EST FINAL IMPRESSION: ACR BI-RADS 2: Benign findings. RECOMMENDATIONS: Routine annual screening mammography. A letter including results and recommendations was sent to the patient. Density notification was included for all patients. Patient information was entered into a reminder system with a target due date for the next mammogram. At our facility, a [place] marker is positioned over a visible skin lesion and a linear marker is used to indicate a scar. A triangular marker is placed on a self reported palpable finding. Narrative 12/06/2024 4:46 PM EST PROCEDURE: Bilateral breast screening mammogram with Digital Breast Tomosynthesis (DBT). REASON FOR EXAM: Routine screening; history of left lumpectomy in 2014. FAMILY HISTORY: There is intermediate family history of breast cancer. COMPARISON STUDY: [facility] FINDINGS: Craniocaudal and mediolateral oblique images of both breasts were obtained in 2D and DBT modes. Synthesized views were reconstructed from the DBT data. As before, optimal positioning could not be achieved on the site of lumpectomy and the most posterior/superior aspect of the breast is not visualized on the MLO views. There are scattered areas of fibroglandular density. No change. Architectural distortion from prior lumpectomy is again visualized in the left axillary tail. Bilateral round and lucent centered calcifications are noted. There is no evidence of a suspicious mass or suspicious calcifications on either side. This examination was reviewed with the benefit of computed aided detection (CAD). us Mariana Crum DO [facility] MAMMOGRAPHY ORDERABLES Final Result documented in this encounter Visit Diagnoses Diagnosis Visit for screening mammogram Visit for screening mammogram- Primary documented in this encounter Care Teams Optical Laboratory Technician Relationship Specialty Start Date End Date Mariana Crum DO [address] [place] [address] PCP - General Obstetrics and Gynecology 12/05/24 documented as of this encounter
--- OUTSIDE RECORDS SUMMARY | 2025-07-04 10:11 | XMS_ITS | Clinical Summary ---
Author Organization [employer] ([place], [place], [place], [place]) Address [address] [place] [address] Care Team Providers Care Windscreen Fitter Name Role Phone Mariana Crum DO Primary Care Provider [phone] Allergies No known active allergies Medications bisoprolol-hydr oCHLOROthiazide (ZIAC) 5-6.25 mg per tablet Take 1 tablet by mouth daily. 08/31/2022 Active furosemide (LASIX) 20 MG tablet Take 20 mg by mouth daily. 10/09/2022 Active omeprazole (PriLOSEC) 20 MG capsule Take 1 capsule (20 mg total) by mouth daily. 10/27/2024 Active Active Problems No known active problems Family History Medical History Relation Name Comments Arthritis Father Mau Gonzalez Hypertension Mother America Gonzalez Hearing loss Paternal Grandfather Gordo Gonzalez Breast cancer Sister Relation Name Status Comments Father Mau Gonzalez Mother America Gonzalez Paternal Grandfather Gordo Gonzalez Sister Social History Tobacco Use Types Packs/Day Years Used Date Smoking Tobacco: Never Smokeless Tobacco: Never Tobacco Cessation:Counseling Given: No Alcohol Use Standard Drinks/Week Comments Never 0 (1 standard drink = 0.6 oz pur e alcohol) Family and Community Support Answer Jose R e Recorded Help with Day to Day Activities Not on file 10/22/2023 Feeling Lonely or Isolated Not on file 10/22 Educational Attainment Answer Date Semaj rded Speak language other than Nepali at home Not on file 10/22/2023 Want [...] on file Sexual Orientation Not on file Last Filed Vital Signs Vital Sign Reading Time Taken Comments Blood Pressure 139/81 12/05/2024 9:16 AM EST Pulse 59 12/05/2024 9:16 AM EST Temperature - - Respiratory Rate 18 11/18/2022 9:27 AM EST Oxygen Saturation - - Inhaled Oxygen Concentration - - Weight 96.2 kg (212 lb) 12/05/2024 9:16 AM EST Height 162.6 cm (5' 4 ) 12/05/2024 9:16 AM EST Body Mass Index 36.39 12/05/2024 9:16 AM EST Plan of Treatment Upcoming Encounters Date Type Department Care Team (Late st Contact Info) Description 12/10/2025 9:00 AM EDT Office Visit [facility] BILINGUAL SALES REPRESENTATIVE - [address] [place] [address] Mariana Crum, DO [address] [place] [address] 12/10/2025 11:00 AM EDT Appointment [facility] [address] [facility] [facility] [address] [place] [address] Health Maintenance Due Date Last Done Comments Medicare Initial AWV G0438 CT Colonography 1955 Colonoscopy 1955 Colorectal Cancer Screening 1955 DXA SCAN 1955 FOBT/FIT 1955 Fit-DNA (Cologuard) 1955 Sigmoidoscopy 1955 Depression Screening (12+) 1968 Hepatitis C Screening 02/23/1974 Pneumococcal 50+ years (1 of 1 - PCV) 02/23/2006 DTAP/TDAP/TD VACCINES (2 - T d or Tdap) 12/01/2009 12/02/1999 Shingles Vaccine (Zoster) (2 of 2) 07/01/20162015 Falls Risk Screening 10/04/2024 COVID-19 VACCINE (5 - 2024-2 6 season) 2025 06/23/2022, 07/31/2021, 12/26/2020, Additional history exists Influenza Vaccine (#1) 2025 07/28/2022, 2020 Tobacco Cessation Counseling and Screening (12+) 12/05/2025 12/05/2024 Breast Cancer Screening 12/05/2026 12/06/19, 11/23/2023, 11/09/2022, Additional history exists Respiratory Syncytial Virus (RSV) Adult or (1 - 1-dose 75+ series) 02/23/2031 Procedures Procedure Name Priority Date/Time Associated Diagnosis Comments MM DIGITAL MAMMO SCREEN WITH IVY BILATERAL Routine 12/05/2024 11:22 AM EST Visit for screening mammogram from Last 3 Months or Most Recently Relevant to Health Maintenance Results * MM digital mammo screen with ivy bilateral (12/05/2024 11:22 AM EST) Anatomical Region [...] the next mammogram. At our facility, a [place] marker is positioned over a visible skin [...] family history of breast cancer. COMPARISON STUDY: [facility] [id number] FINDINGS: Craniocaudal and mediolateral oblique images of [...] aided detection (CAD). us Mariana Crum DO IMG MAMMOGRAPHY ORDERABLES Final Result from Last 3 Months or Most Recently Relevant to Health Maintenance Insurance [place]ICARE [place] [address] [place] [address] SUPP Care Teams Windscreen Fitter Relationship Specialty Start Date End Date Mariana Crum DO [address] [place] [address] PCP - General Obstetrics and Gynecology 12/05/24
--- OUTSIDE RECORDS SUMMARY | 2025-07-04 10:11 | XMS_ITS | Referral Summary ---
Author Organization [employer] ([place], [place], [place], [place]) Address [address] [place] [address] Care Team Providers Care Fermentation Manager Name Role Phone Mariana Crum DO Primary Care Provider [phone] Allergies No known active allergies Medications bisoprolol-hydr oCHLOROthiazide (ZIAC) 5-6.25 mg per tablet Take 1 tablet by mouth daily. 08/31/2022 Active furosemide (LASIX) 20 MG tablet Take 20 mg by mouth daily. 10/09/2022 Active omeprazole (PriLOSEC) 20 MG capsule Take 1 capsule (20 mg total) by mouth daily. 10/27/2024 Active Active Problems No known active problems Social History Tobacco Use Types Packs/Day Years [...] Date Semaj rded Speak language other than Maori at home Not on file 10/22/2023 Want [...] Description 12/10/2025 9:00 AM EDT Office Visit [facility] EYE CARE PROFESSIONAL - [address] [place] [address] Mariana Crum DO [address] [place] [address] 12/10/2025 11:00 AM EDT Appointment [facility] [address] [place] [address] Procedures Procedure Name Priority Date/Time Associated Diagnosis Comments MM DIGITAL MAMMO SCREEN WITH IYV BILATERAL Routine 12/05/2024 11:22 AM EST Visit [...] the next mammogram. At our facility, a [place] marker is positioned over a visible skin lesion and a linear marker is used to indicate a scar. A triangular marker is placed on a self reported palpable finding. Narrative 12/06/2024 4:46 PM EST PROCEDURE: Bilateral breast screening mammogram with Digital Breast Tomosynthesis (DBT). REASON FOR EXAM: Routine screening; history of left lumpectomy in 2015. FAMILY HISTORY: There is intermediate family history of breast cancer. COMPARISON STUDY: [facility] Breast Care FINDINGS: Craniocaudal and mediolateral oblique images of [...] the benefit of computed aided detection (CAD). Mariana Crum DO IMG MAMMOGRAPHY ORDERABLES Final Result from Last 3 Months or Most Recently Relevant to Health Maintenance Insurance MEDICARE [place] [address] [place] [address] Care Teams Fermentation Manager Relationship Specialty Start Date End Date Mariana Crum, DO [address] [place] [address] PCP - General Obstetrics and Gynecology 12/05/24
--- OUTSIDE RECORDS SUMMARY | 2025-07-04 10:11 | XMS_ITS | Clinical Summary ---
Author Organization [facility] Address [address] [place] [address] Care Team Providers Care Primary Health Care Nurse Name Role Phone Roger Renae MD Primary Care Provider [phone] Allergies No known active allergies Medications bisoprolol-hydr ochlorothiazide (ZIAC) 5-6.25 MG per tablet 8 Active furosemide (LASIX) 20 MG tablet 8 Active venlafaxine 37.5 MG tablet sustained-relea se 24 hour 24 hr tablet 8 Active tamoxifen (NOLVADEX) 10 MG tablet Take by mouth 2 (Two) Times a Day. Active [place]-3 1000 MG capsule Take by mouth. Activ e Calcium Carbonate-Vit D-Min (CALCIUM 1200 PO) Take by mouth. Activ e Multiple Vitamins-Minera ls (MULTIVITAMIN ADULT EXTRA C) chewable tablet Chew. Acti ve Pseudoephedrine -APAP-DM (DAYQUIL PO) Take by mouth. Ac tive diclofenac (VOLTAREN) 1 % gel gelIndications: Pes anserine bursitis Apply 4 g topically to the appropriate area as directed 4 (Four) Times a Day. Small amount to affected area 300 g 3 8 Active meloxicam (MOBIC) 15 MG tabletIndicatio ns:Pes anserine bursitis 1 PO Daily with food. 60 tablet 8 Active Active Problems No known active problems Family History Medical History Relation Name Comments Osteoarthritis Father Hypertension Mother Relation Name Status Comments Father Mother Social History Tobacco Use Types Packs/Day Years Used Date Smoking Tobacco: Never Smokeless Tobacco: Never Alcohol Use Standard Drinks/Week Comments No 0 (1 standard drink = 0.6 oz pur e alcohol) Abuse Screen Answer Date Recorded Unsafe at Home or Work/School Not on file Feels Threatened by Someone? Not on file 06/2023 Does Anyone Keep You from Co ntacting Others or Doint Things Outside the Home? Not on file 07/12/2023 Physical Sign of Abuse Present Not on file 1 Housing Stability Answer Date Recorded Current Living Arrangements Not on file 06/2023 Potentially Unsafe Housing Conditions Not on neil e 07/12/2023 Family and Community Support Answer Jose R e Recorded Help with Day-to-Day Activities Not on file 07/12/2023 Lonely or Isolated Not on file 07/12/2023 Employment Answer Date Recorded Do you want help finding or keeping work or a heather b? Not on file 07/12/2023 Disabilities Answer Date Recorded Concentrating, Remembering, or Making Decisions Difficulty Not on file 07/12/2023 Doing Errands Independently Difficulty Not on fi le 07/12/2023 Education Answer Date Recorded Help with school or training? Not on file Preferred Language Not on file 07/12/2023 Comments Unknown Sex and Gender Information Value Date Recorded Sex Assigned at Not on file Legal Sex Female 1:07 PM EDT Gender Identity Not on file Sexual Orientation Not on file Last Filed Vital Signs Vital Sign Reading Time Taken Comments Blood Pressure - - Pulse 75 09/09/2018 7:41 AM EST Temperature - - Respiratory Rate - - Oxygen Saturation 98% 09/09/2018 7:41 AM EST Inhaled Oxygen Concentration - - Weight 95 kg (209 lb 7 oz) 09/09/2018 7:41 AM ES T Height 162.7 cm (5' 4.06 ) 09/09/2018 7:41 AM ES T Body Mass Index 35.89 09/09/2018 7:41 AM EST Plan of Treatment Health Maintenance Due Date Last Done Comments DXA SCAN 1955 TDAP/TD VACCINES (1 - Tdap) 02/23/1975 MAMMOGRAM 1996 COLOGUARD 02/23/2001 COLON CANCER SCREENING 5 YEAR SIGMOIDOSCOPY 02/23/2001 COLONOSCOPY 02/23/2001 COLORECTAL CANCER SCREENING 02/23/2001 CT COLONOGRAPHY 02/23/2001 FECAL OCCULT BLOOD TEST 02/23/2001 FIT Testing (1 year) 02/23/2001 Pneumococcal Vaccine 50+ (1 of 1 - PCV) 02/23/2006 ZOSTER VACCINE (1 of 2) 02/23/2006 ANNUAL PHYSICAL 07/05/2018 HEPATITIS C SCREENING 07/05/2018 INFLUENZA VACCINE 05/04/2025 COVID-19 Vaccine ( season) 2025 Insurance [facility] [place] Care Teams Primary Health Care Nurse Relationship Specialty Start Date End Date Roger Renae MD [address] [facility] [address] [place] [address] PCP - General 07/31/15
== END 2025-07-03 23:59 | disposition home or self-care (01) ==
LOC: LAB.DROPOF 07-04 09:49
PROVIDERS: PCP Internal Medicine; Visit Provider Internal Medicine
DX: K52.9 Noninfective gastroenteritis and colitis, unspecified (principal)
CPT/HCPCS: 87045; 87493

== ENCOUNTER 2025-08-28 15:00 | Outpatient (CLI) | payer MEDICARE, OTHER, SELFPAY ==
--- OUTSIDE RECORDS SUMMARY | 2025-08-29 10:15 | XMS_ITS | Encounter Summary ---
Author Organization [employer] ([place], [place], [place], [place], [place]) Address [address] [place] [address] Care Team Providers Care River [place] Boatman Name Role Phone Nick Zepeda MD Primary Care Provider [phone] Mariana Crum DO Primary Care Provider [phone] Encounter Details Date Type Department Care Team (Late st Contact Info) Description 01/11/2019 Transcribed Document [facility] - [place] [facility] [address] [place] [address] Isabel Butterfield MD [address] [place] [address] Social History Tobacco Use Types Packs/Day Years [...] Butterfield MD - 01/11/2019 11:54 AM EDT [facility] Follow Up Note 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 Screening mammography 09/17, asymmetry in left breast, axillary tail. US with 7 mm mass. 2. 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 3. Lumpectomy 10/16/15 [id number], [...] events. No breast-related complaints. Past Medical History: [facility] MD Isabel Avila MD [address], [address], [place] [address] 1 Hypertension, osteoarthritis Endocrine History: Postmenopausal, status [...] abuse, illicit drug use. 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 Family History: Mother with pancreatic cancer at [...] Description 12/10/2025 9:00 AM EDT Office Visit [facility] FIRE MARSHAL - [address] [place] [address] Mariana Crum DO [address] [place] [address] 12/10/2025 11:00 AM EDT Appointment [facility] [address] [facility] [address] [place] [address] documented as of this encounter Visit Diagnoses Not on filedocumented in this encounter Care Teams [place] Boatman Relationship Specialty Start Date End Date Nick Zepeda MD [address] [place] [address] PCP - General Obstetrics and Gynecology 11/09/2212/04 Mariana Crum DO [address] [place] [address] PCP - General Obstetrics and Gynecology 12/05/24 documented as of this encounter
--- OUTSIDE RECORDS SUMMARY | 2025-08-29 10:16 | XMS_ITS | Referral Summary ---
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 At our facility, a [place] marker is positioned over a visible skin [...] family history of breast cancer. COMPARISON STUDY: [facility] Breast Care FINDINGS: Craniocaudal and mediolateral oblique [...] Health Maintenance Insurance MEDICARE PART [place] [address] SUPP Care Teams Beef Boner Relationship Specialty Start Date End Date Mariana Crum, DO [address] [place] [address] PCP - General Obstetrics and Gynecology 12/05/24
--- OUTSIDE RECORDS SUMMARY | 2025-08-29 10:16 | XMS_ITS | Clinical Summary ---
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 At our facility, a [place] marker is positioned over a visible skin [...] family history of breast cancer. COMPARISON STUDY: [facility] [id number] FINDINGS: Craniocaudal and mediolateral oblique images of [...] Health Maintenance Insurance [place]ICARE [place] [place] [address] Care Teams Freelance Translator Relationship Specialty Start Date End Date Mariana Crum DO [address] [place] [address] PCP - General Obstetrics and Gynecology 12/05/24
--- OUTSIDE RECORDS SUMMARY | 2025-08-29 10:16 | XMS_ITS | Clinical Summary ---
Author Organization [facility] Address [address] [place] [address] Care Team Providers Care Bottle Washer Machine Name Role Phone Roger Renae MD Primary Care Provider [phone] Allergies No known active allergies Medications bisoprolol-hydr ochlorothiazide (ZIAC) 5-6.25 MG per tablet 8 Active furosemide (LASIX) 20 MG tablet 8 Active venlafaxine 37.5 MG tablet sustained-relea se 24 hour 24 hr tablet 8 Active tamoxifen (NOLVADEX) 10 MG tablet Take by mouth 2 (Two) Times a Day. Active [place]-3 1000 MG capsule Take by mouth. Activ [...] 05/04/2025 COVID-19 Vaccine ( season) 2025 Insurance [facility] [employer] Care Teams Bottle Washer Machine Relationship Specialty Start Date End Date Roger Renae MD [address] [facility] [address] [place] [address] PCP - General 07/31/15
== END 2025-08-28 23:59 ==
LOC: LAB.DROPOF 08-29 10:10
PROVIDERS: PCP Internal Medicine; Visit Provider Podiatrist
DX: L60.0 Ingrowing nail (principal)
CPT/HCPCS: 87070; 87205